=== PATIENT | male | born 1975 | race Caucasian/White ===

== ENCOUNTER → 2025-02-12 | Outpatient (REF) | payer OTHER | LOC: RAD 13:08 | PROVIDERS: ATTEND Orthopaedic Surgery Hand Surgery | DX: M79.674 Pain in right toe(s) (principal) ==

== ENCOUNTER → 2025-05-11 | Outpatient (REF) | payer OTHER | LOC: RAD 10:17 | PROVIDERS: ATTEND Orthopaedic Surgery Hand Surgery | DX: M20.41 Other hammer toe(s) (acquired), right foot (principal) ==

== ENCOUNTER → 2025-07-13 | Outpatient (REF) | payer OTHER | LOC: RAD 08:15 | PROVIDERS: ATTEND Orthopaedic Surgery Hand Surgery | DX: M20.41 Other hammer toe(s) (acquired), right foot (principal) ==